=== PATIENT | male | born 1955 | race Caucasian/White ===

== ENCOUNTER 2025-01-15 09:00 | Outpatient (RCR) | payer MEDICARE, OTHER, SELFPAY ==
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
--- NOTE | 2024-12-31 16:15 | PT-OP ANOTE ---
pt cancelled appt, no reason given.
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
== END 2025-01-18 08:53 | disposition home or self-care (01) ==
LOC: PHYS 09:00
PROVIDERS: Family Provider Family Medicine; PCP Family Medicine; Referring Provider Family Medicine; Visit Provider Family Medicine
DX: M25.512 Pain in left shoulder (principal)
CPT/HCPCS: 97012; 97110; 97140; 97162; 97535

== ENCOUNTER 2025-08-21 09:45 | Outpatient (RCR) | payer MEDICARE, OTHER, SELFPAY ==
--- NOTE | 2025-07-01 16:52 | PT.OPPOC ---
Physical, Occupational & Speech Therapy At [facility] Current Diagnoses Other chronic pain (07/01/25) Pain in right hip (07/01/25) Visit Care Team Role Provider Type Brittney Palacios DO Attending Provider Physician Family Provider Primary Care Provider Referring Provider Specialty: Medical Address: [address] [place] [address], [address], [place], [address] Email: [email or web address] Plan Of Care PT OP: Lower Back/Lower Extremity Start: 07/01/25 13:02 Freq: Status: Active Protocol: Document 07/01/25 13:02 [facility] (Rec: 07/01/25 13:51 [facility] [id number]) Out-Patient Physical Therapy Visit Information Visit Information Visit Start Time 13:03 Visit Stop Time 13:48 Visit Number 1 Number of CREATIVE WRITING TEACHER Visits 0 Progress Note Due 07/31/25 Current Condition History of Current Condition Onset Date 1.5-2 years Current Complaints R lat hip and post History of Current Pt reports R lat hip pain that started. 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 did a lot of L shoulder PT and does a few exercises a week for that and can lay on L side now but laying on R side hurts him. Having R knee up towards chest improves it. It is a dull ache. Dr tried cortizone shot that helped maybe some. Walking doesn't seem to hurt it unless he walks a lot, but standing hurts back and hip like in kitchen. some days are 15- 18k step days and those inc pain. splitting and stacking wood seems to make it worse. a little discomfort with squatting. tried icing and that does help some. dehydration makes it worse. R sided inguinal hernia 2 years ago. Stopped vaping after that and decreased drinking alcohol after that. Have had back pain, but with some of his shoulder exercises, and stretching has helped. Treatment Goals Patient/Caregiver be able to lay on R hip, be able to long days on feet, Goals be able squat down w/o tightness. Patient Questionnaires Lower Extremity Functional Scale LEFS Score 72/80 Balance Tests Single Limb Standing Single Limb- Right >30 sec inc deviation-slight ache Single Limb- Left >30 sec OP Gait Assessment Comments Gait Comments dec stance time RLE and dec hip ext R>L Posture Evaluation Gaudencio Postural Classification System Lumbar Protective 1 Mechanism Left AP Lumbar Protective 1 Mechanism Right AP Lumbar Protective 2 Mechanism Left PA Lumbar Protective 2 Mechanism Right PA Comments Posture Comments R pelvic shear, L SB, R foot supinates, R trunk rotation, equal greater trochanter height, R iliac crest higher Lumbar Spine Range of Motion Lumbar Spine Active Percentage Flexion 50 Extension 75 Rotation Left 60 Rotation Right 60 Lateral Flexion Left 80 Lateral Flexion 50 Right Comments about 2 in above patella w/flex w/pelvis blocked, 1 in above malleoli w/o; pop w/L SB w/relief Hip Goniometric Range of Motion Hip Measured in Degrees Left Active Flexion w/Knee 108 Flexed Straight Leg Raise 79 Internal Rotation 23 External Rotation 24 Right Active Flexion w/Knee 101 Flexed Straight Leg Raise 79 Abduction 23 Internal Rotation 18 External Rotation 21 Special Tests Lumbar Spine Special Tests Kalie Test Results neg for pain but more ROM L>R Adama Test Results L quad and mild hip flexor tightness, R hip flexor and RF tightness SLR Test Results groin pain R Comments L ant thigh cramping Slump Test Results neg B Hip Strength Hip Manual Muscle Testing Right Flexion (L2) 4- Good- Extension (S1) 4- Good- Abduction 3+ Fair+ Adduction 4- Good- External Rotation 4+ Good+ Internal Rotation 4- Good- Left Flexion (L2) 4- Good- Extension (S1) 4 Good Abduction 5 Normal Adduction 5 Normal External Rotation 5 Normal Internal Rotation 5 Normal Knee Strength Knee Manual Muscle Testing Right Flexion (S2) 5 Normal Extension (L3) 5 Normal Left Flexion (S2) 5 Normal Extension (L3) 5 Normal Therapeutic Exercises Supine Exercises bridge Supine Exercise Name stopped d/t HS cramping w/2 reps Side bilateral isometric Supine Exercise Name DL flex w/DF Side bilateral Reps/Minutes 20 sec Standing Exercises sidestep Side bilateral Equipment Used L2 at ankles Reps/Minutes 2x10ft Comments cues posture Self-Care/Home Management Treatment Education Other Education 10min:e du to pt re: R hip weakness and dec flexibility likely related to pain. Edu how inguinal hernia repair may also be related based on timeline and how tightness ant could throw off the hip. edu on postural changes and pelvis off likely affecting pain Physical Therapy Assessment Rehab Potential Rehabilitation Good Potential Evaluation Complexity Number of Personal 3 or More Factors/ Comorbidities Number of Body 4 or More Systems Impaired Clinical Evolving Presentation at Evaluation Impairments Impairments Activity Tolerance,Balance,Functional Activities, Functional Mobility,Gait,Pain,Posture,ROM,Soft Tissue Mobility,Strength,Transfers Goals ROM Senior Living Goal (LTG) Pt will report being able to reach toenails on R foot w /o difficulty for clipping. LTG Duration 09/25 activities Short Term Goal (STG pt will be able to squat w/o tightness in R hip ) STG Duration 08/21 Senior Living Goal (LTG) Pt will be able to lay on R side w/o increased pain LTG Duration 09/21 strength Short Term Goal (STG Pt will demonstrate independence w/HEP by being able to ) perform with no more than min cues. STG Duration 08/01 Pockets And Pieces Necktie Operator Goal (LTG) Pt will score at least 4+/5 on all B hip MMT and at least 3/5 LPM to show improved strength to allow pt to do house activities w/o inc pain LTG Duration 09/29/25 Assessment Summary Assessment Pt presents w/chronic R lat/post hip pain with hx of R inguinal hernia repair around the same time pain started. Pt also has major postural changes and alignment dysfunctions contributing to pain along w/dec ROM and strength of R hip and core. He would benefit from skilled PT to address these deficits and improve his function in order to do daily activities w/o hip pain. Physical Therapy Plan Frequency and Duration Frequency of 1x/Week Treatment Duration of 12 treatment (weeks) Plan of Care Start 07/01/25 Date Plan of Care End 09/29/25 Date Therapeutic Interventions Therapeutic Balance Training,Gait Training,Home Exercise Program, Interventions Joint Mobilizations,Manual Therapy,Neuromuscular Re- education,Self-Care/Home Management,Soft Tissue Mobilization,Taping,Therapeutic Activities,Therapeutic Exercises Modalities Cold Pack/Ice Massage,Electric Stimulation,Hot Packs, Infrared Therapy,Traction- Mechanical,Ultrasound Next Visit Focus/Plan Next Note Type Treatment Note Next Visit Plan review exercises, hip stretches, cat/cow, core exercises; manual to pelvis, R hip and mm around R hip Plan of Care Dates Plan of Care Start Date 07/01/25 Plan of Care End Date 09/29/25 Electronically Signed by: Aditi Oconnor, PT 07/01/25 2468 If you are in agreement with this Plan of Care, please return a signed and dated copy. I have reviewed this Plan of Care and certify that the skilled therapy services above are required to meet the patient?s needs. Physician Signature Date Printed Name and Credentials Clinical Instructor Signature Printed Name and Credentials
--- NOTE | 2025-07-08 10:34 | PT.OTN ---
Current Diagnoses Other chronic pain (07/08/25) Pain in right hip (07/08/25) Physical Therapy Treatment Note PT OP: Lower Back/Lower Extremity Start: 07/01/25 13:02 Freq: Status: Active Protocol: Document 07/08/25 09:47 SP (Rec: 07/08/25 10:38 SP [id number]) Out-Patient Physical Therapy Visit Information Visit Information Visit Type Treatment Note Visit Start Time 09:48 Visit Stop Time 10:34 Visit Number 2 Number of MOLD PRESSER Visits 1 Progress Note Due 07/31/25 OP-PT Subjective Patient Comments Patient Comments Pt Compliant with resisted stepping, good hip mm tiring . Dr Palacios gave him a shot, bettet than was but still can 't sleep in R hip. He is doing pretty good, with past L shld HEP ROM vs strengthening cued importance but lifting buckets over head and only creaking and occasional pain not limiting him. 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 Therapeutic Exercises Supine Exercises Stretching Supine Exercise Name 1. HS static &dynamic ankle pumps 2. pirif stretch /c strap 3. Mod Adama Side bilateral Resistance R>L tightness Equipment Used 4. Quad Reps/Minutes 30-60 sec 1-2 Comments slow gentle stret Standing Exercises sidestep Standing Exercise verbal review Name Manual Therapy Treatment Consent Patient gave verbal Yes consent for manual treatment Soft Tissue Mobilization Hip\ Body Location L SL: R pirifrmis, glut med & max, TFL, ITB prox Comments good response Joint Mobilizations hip Joint R: lateral, posterolateral, anterior medial, PNF anterior elevation/postdep Comments very weak core and posterior depression good response to mobs with strap, performance instruction self with phone pics Self-Care/Home Management Treatment Education Patient Education Body Mechanics,Home Exercise Program,Joint Protection, Pain Management,Posture,Safety Other Education much ed during manual and ed self instruction for carryover home, importance of flexibility and strength, incorporated flexibiltiy today with good resposne and how can incorporate home. Future body mechanics. Physical Therapy Assessment Goals ROM Care Home Goal (LTG) Pt will report being able to reach toenails on R foot w /o difficulty for clipping. LTG Duration 11/5 activities Short Term Goal (STG pt will be able to squat w/o tightness in R hip ) STG Duration 08/21 Care Home Goal (LTG) Pt will be able to lay on R side w/o increased pain LTG Duration 09/21 strength Short Term Goal (STG Pt will demonstrate independence w/HEP by being able to ) perform with no more than min cues. STG Duration 08/01 Medical Oncology Physician Goal (LTG) Pt will score at least 4+/5 on all B hip MMT and at least 3/5 LPM to show improved strength to allow pt to do house activities w/o inc pain LTG Duration 09/29/25 Assessment Summary Assessment Pt good feedback response to manual and education on self R hip mobs for relief home carryover. Initiated stretching program with good feedback able move hip better, very tight R>L HS hip flexor, quad, cues for TA /PPT neutral to not over recruit LS with good corrections and understanding when utilize. Physical Therapy Plan Frequency and Duration Frequency of 1x/Week Treatment Duration of 12 treatment (weeks) Plan of Care Start 07/01/25 Date Plan of Care End 09/29/25 Date Therapeutic Interventions Therapeutic Balance Training,Gait Training,Home Exercise Program, Interventions Joint Mobilizations,Manual Therapy,Neuromuscular Re- education,Self-Care/Home Management,Soft Tissue Mobilization,Taping,Therapeutic Activities,Therapeutic Exercises Modalities Cold Pack/Ice Massage,Electric Stimulation,Hot Packs, Infrared Therapy,Traction- Mechanical,Ultrasound Next Visit Focus/Plan Next Note Type Treatment Note Next Visit Plan review exercises, hip stretches, cat/cow, core exercises; manual to pelvis, R hip and mm around R hip, future body mechanics
--- NOTE | 2025-07-29 14:30 | PT.OTN ---
Current Diagnoses Other chronic pain (07/29/25) Pain in right hip (07/29/25) Physical Therapy Treatment Note PT OP: Lower Back/Lower Extremity Start: 07/01/25 13:02 Freq: Status: Active Protocol: Document 07/29/25 13:50 SP (Rec: 07/29/25 15:24 SP [id number]) Out-Patient Physical Therapy Visit Information Visit Information Visit Type Treatment Note Visit Note ALICIA Ayers assisted with manual hip mobs and hat body inspector instruction while under direct supervision and instruction of FLAKITA Toth. Visit Start Time 13:50 Visit Stop Time 14:30 Visit Number 3 Number of RETAIL SALES MERCHANDISER DEVELOPMENT Visits 2 Progress Note Due 07/31/25 OP-PT Subjective Patient Comments Patient Comments Pt was able to sleep on L hip without issues. Has been traveling and not having as much issues and honestly hasn;t been as diligent with HEP. He did some good walking 1.5 miles and little soreness R hip and low back, only had to ice 3x in past week so seeing improvement. He is finding great relief with self hip mobes. Therapeutic Exercises Standing Exercises sidestep Standing Exercise performed review- Fwd, Bwd, lateral Name Side bilateral Resistance Tb #3 [place] Reps/Minutes 15 ftr 2 laps each direction Comments cued safety eccentric return with stronger #3 band Other Exercises Self STMs Other Exercise Name R glut & hip ERs Equipment Used racquetball (hooklying) Reps/Minutes 1-2 min Comments instruction ed: sustain pressure vs MWM hip IR/ER Therapeutic Activity Therapeutic Activity Push cart (wheelbarrow assimulation) Name 50 lbs Comments cued more upright elongated spinal alignment, TA, and education mechanics pushing better than pulling due to able to brace abdominals for spinal support. pull weeds Name 1/2 kneel pulling weeds Comments cued more elongated spinal alignment, TA and wt shift fwd/bwd between front/back legs for use of larger musculature to pull weeds vs just UE, education many times is when the back gets injured. squat mechanics Name squat lifting: firewood, compost (home 10-50 lbs) Comments cued for spinal alignment, movement work space for feet repositioning, wt shift between BLEs use of larger quad, glut muscles and mindful of TA engagment Manual Therapy Treatment Consent Patient gave verbal Yes consent for manual treatment Soft Tissue Mobilization Hip\ Body Location R pirifrmis, glut med & max, TFL, ITB prox Comments good response Joint Mobilizations hip Joint R: lateral, posterolateral, anterior medial Comments good response to mobs with strap Physical Therapy Assessment Goals ROM Broker Assistant Goal (LTG) Pt will report being able to reach toenails on R foot w /o difficulty for clipping. LTG Duration 09/25 activities Short Term Goal (STG pt will be able to squat w/o tightness in R hip ) STG Duration 08/21 Broker Assistant Goal (LTG) Pt will be able to lay on R side w/o increased pain LTG Duration 09/21 strength Short Term Goal (STG Pt will demonstrate independence w/HEP by being able to ) perform with no more than min cues. STG Duration 08/01 Jail Goal (LTG) Pt will score at least 4+/5 on all B hip MMT and at least 3/5 LPM to show improved strength to allow pt to do house activities w/o inc pain LTG Duration 09/29/25 Assessment Summary Assessment Pt had good feedback response to manual, provided RETAIL SALES MERCHANDISER DEVELOPMENT and [employer] feedback of R hip mob pressure and direction distraction to give him relief and improved hip ER range of motion. Continued cueing education to patient with improved self corrections for spinal alignment, postural corections and moving BLEs pivoting when picker / packer/ put down items with abdominal engagment support to decrease low back compensations when moving compost or splitting wood. Physical Therapy Plan Frequency and Duration Frequency of 1x/Week Treatment Duration of 12 treatment (weeks) Plan of Care Start 07/01/25 Date Plan of Care End 09/29/25 Date Therapeutic Interventions Therapeutic Balance Training,Gait Training,Home Exercise Program, Interventions Joint Mobilizations,Manual Therapy,Neuromuscular Re- education,Self-Care/Home Management,Soft Tissue Mobilization,Taping,Therapeutic Activities,Therapeutic Exercises Modalities Cold Pack/Ice Massage,Electric Stimulation,Hot Packs, Infrared Therapy,Traction- Mechanical,Ultrasound Next Visit Focus/Plan Next Note Type Treatment Note Next Visit Plan Next tx: assess squat mechanics and add as HEP. POC: REview HEP including hip stretches, cat/cow, core exercises; provide manual to pelvis, R hip and mm around R hip.
--- NOTE | 2025-08-05 11:34 | PT.OPPN ---
Current Diagnoses Other chronic pain (08/05/25) Pain in right hip (08/05/25) Physical Therapy Progress Note PT OP: Lower Back/Lower Extremity Start: 07/01/25 13:02 Freq: Status: Active Protocol: Document 08/05/25 10:43 [facility] (Rec: 08/05/25 11:34 [facility] [id number]) Out-Patient Physical Therapy Visit Information Visit Information Visit Type Progress Note Visit Start Time 10:50 Visit Stop Time 11:30 Visit Number 4 Number of EDUCATION TRAINER Visits 0 Progress Note Due 09/04/25 OP-PT Subjective Patient Comments Patient Comments hip slowly getting better. compliance w/HEP Posture Evaluation Gaudencio Postural Classification System Lumbar Protective 2 Mechanism Left AP Lumbar Protective 1 Mechanism Right AP Lumbar Protective 2 Mechanism Left PA Lumbar Protective 2 Mechanism Right PA Hip Strength Hip Manual Muscle Testing Right Flexion (L2) 4+ Good+ Extension (S1) 4- Good- Abduction 4 Good Adduction 4+ Good+ External Rotation 4+ Good+ Internal Rotation 4+ Good+ Left Flexion (L2) 4+ Good+ Extension (S1) 4+ Good+ Abduction 5 Normal Adduction 5 Normal External Rotation 5 Normal Internal Rotation 5 Normal Therapeutic Exercises Standing Exercises squat Standing Exercise seat taps Name Side bilateral Equipment Used L 2 at knees Reps/Minutes 15 Comments cues hip hinge and glutes, cues knee position hip ext Standing Exercise hip hinge position to forearms on counter Name Side bilateral Equipment Used L2 ankles Reps/Minutes 10 ea Comments cues core sidestep Standing Exercise mini squat position Name Side bilateral Resistance lvl 2 at ankles, L3 at knees Reps/Minutes 15ft ea Comments cues posture Manual Therapy Treatment Consent Patient gave verbal Yes consent for manual treatment Soft Tissue Mobilization HS Body Location B percussion c/r HS stretch Mobilization Type Instrument Assisted Intensity/Depth Moderate Body Position Supine Joint Mobilizations innominate Comments R prone caudal w/LTR, R ER c/r prone, R flex c/r supine hip Comments R hip on axis c/r prone, R free the ball IR and ER c/r, B inf glide c/r Physical Therapy Assessment Goals ROM Petrographer Goal (LTG) Pt will report being able to reach toenails on R foot w /o difficulty for clipping. LTG Duration achieved 08/05 activities Short Term Goal (STG pt will be able to squat w/o tightness in R hip ) 08/05-better but still present STG Duration 08/21 Petrographer Goal (LTG) Pt will be able to lay on R side w/o increased pain 08/05-can do now about 2 hours vs only 20 min LTG Duration 09/21 strength Short Term Goal (STG Pt will demonstrate independence w/HEP by being able to ) perform with no more than min cues. STG Duration 08/01 Usp Goal (LTG) Pt will score at least 4+/5 on all B hip MMT and at least 3/5 LPM to show improved strength to allow pt to do house activities w/o inc pain 08/05-improving LTG Duration 09/29/25 Assessment Summary Assessment Pt making good progress w/PT with improved ROM of hip after manual and less discomfort w/squat. Pt trained w/ squat mechanics and felt challenged by exercises. COnt PT to work on ROM, and strength to dec hip discomfort Physical Therapy Plan Frequency and Duration Frequency of 1x/Week Treatment Duration of 12 treatment (weeks) Plan of Care Start 07/01/25 Date Plan of Care End 09/29/25 Date Next Visit Focus/Plan Next Note Type Treatment Note Next Visit Plan check in to see if pt ready for DC vs schedule more; review exercises, manual to hip Teach self inf glide and DKTC isometric flex press
--- NOTE | 2025-08-21 10:32 | PT.OPDS ---
Current Diagnoses Other chronic pain (08/21/25) Pain in right hip (08/21/25) Visit Care Team Role Provider Type Brittney Palacios DO Attending Provider Physician Family Provider Primary Care Provider Referring Provider Specialty: Medical Address: [address] [place] [address], [address], [place], [address] Email: [email or web address] Visit Number Visit Number 5 Discharge Summary PT OP: Lower Back/Lower Extremity Start: 07/01/25 13:02 Freq: Status: Active Protocol: Document 08/21/25 09:49 [facility] (Rec: 08/21/25 10:32 [facility] [id number]) Out-Patient Physical Therapy Visit Information Visit Information Visit Type Discharge Summary Visit Start Time 09:50 Visit Stop Time 10:30 Visit Number 5 Number of IMPROVEMENT LEADER Visits 0 Progress Note Due 09/04/25 OP-PT Subjective Patient Comments Patient Comments slept on hip hip for 4 hours and felt ok. seems to keep getting better. tightness with squatting getting better Posture Evaluation Gaudencio Postural Classification System Lumbar Protective 2 Mechanism Left AP Lumbar Protective 1 Mechanism Right AP Lumbar Protective 3 Mechanism Left PA Lumbar Protective 3 Mechanism Right PA Hip Strength Hip Manual Muscle Testing Right Flexion (L2) 5 Normal Extension (S1) 5 Normal Abduction 5 Normal Adduction 5 Normal External Rotation 5 Normal Internal Rotation 5 Normal Left Flexion (L2) 5 Normal Extension (S1) 5 Normal Abduction 5 Normal Adduction 5 Normal External Rotation 5 Normal Internal Rotation 5 Normal Therapeutic Exercises Supine Exercises bug Side bilateral Reps/Minutes 2x10 Comments cues back flat &breathing isometric Supine Exercise Name DL flex w/DF Side bilateral Reps/Minutes 30 sec Standing Exercises squat Standing Exercise seat taps Name Side bilateral Equipment Used L 3 at knees Reps/Minutes 15 Comments cues hip hinge and glutes, cues knee position hip ext Standing Exercise hip hinge position to forearms on counter Name Side bilateral Equipment Used L2 ankles Reps/Minutes 15 ea Comments cues core sidestep Standing Exercise mini squat position Name Side bilateral Resistance lvl 2 at ankles, L3 at knees Reps/Minutes 15ft ea Comments cues posture Manual Therapy Treatment Consent Patient gave verbal Yes consent for manual treatment Soft Tissue Mobilization Hip\ Body Location R pirifrmis, glut med & max, TFL, ITB prox Comments good response Joint Mobilizations innominate Comments R hip abd and IR s/l and supine c/r hip Comments R hip abd c/r and IR free the ball c/r Physical Therapy Assessment Goals ROM Custodial Goal (LTG) Pt will report being able to reach toenails on R foot w /o difficulty for clipping. LTG Duration achieved 08/05 activities Short Term Goal (STG pt will be able to squat w/o tightness in R hip ) 08/05-better but still present STG Duration min tightness but improving Balancing Machine Set Up Worker Goal (LTG) Pt will be able to lay on R side w/o increased pain 08/05-can do now about 2 hours vs only 20 min LTG Duration achieved did 4 hours last night strength Short Term Goal (STG Pt will demonstrate independence w/HEP by being able to ) perform with no more than min cues. STG Duration 08/01 Custodial Goal (LTG) Pt will score at least 4+/5 on all B hip MMT and at least 3/5 LPM to show improved strength to allow pt to do house activities w/o inc pain 08/05-improving LTG Duration MMT achieved, AP mild core weakness w/LPM Assessment Summary Assessment Pt has met most goals and notes much improved symptoms and is indep w/HEP at this time. Strength progressing well with some weakness in core still and exercises added for focus on this. Physical Therapy Plan Frequency and Duration Frequency of 1x/Week Treatment Duration of 12 treatment (weeks) Plan of Care Start 07/01/25 Date Plan of Care End 09/29/25 Date Discharge Physical Therapy Discharge Reasons Goals Met
== END 2025-08-22 09:29 | disposition home or self-care (01) ==
LOC: PHYS 09:45
PROVIDERS: Family Provider Family Medicine; PCP Family Medicine; Referring Provider Family Medicine; Visit Provider Family Medicine
DX: M25.551 Pain in right hip (principal); G89.29 Other chronic pain
CPT/HCPCS: 97110; 97140; 97162; 97530; 97535

== ENCOUNTER → 2025-09-09 11:02 | Outpatient (CLI) | payer MEDICARE, OTHER, SELFPAY ==
[2025-09-09 12:15] LABS: Alanine Aminotransferase 22 IU/L (<50); Albumin 4.5 g/dL (3.5-5.0); Albumin Globulin Ratio 1.5 (1.0-2.8); Alkaline Phosphatase 50 U/L (38-126); Blood Urea Nitrogen 15 mg/dL (9-20); Calcium 9.8 mg/dL (8.4-10.2); Carbon Dioxide 27 mmol/L (22-32); Chloride 101 mmol/L (98-107); Estimated Glomerular Filt Rate > 60 mL/min (>60); Globulin 3.0 g/dL (1.7-4.1); Glucose 94 mg/dL (70-99); HEMOLYSIS < 15 (0-50); Potassium 5.1 mmol/L (3.4-5.1); Sodium 135 mmol/L (137-145); Total Protein 7.5 g/dL (6.3-8.2)
== END ==
PROVIDERS: Family Provider Family Medicine; PCP Family Medicine; Referring Provider Family Medicine; Visit Provider Family Medicine
DX: Z12.5 Encounter for screening for malignant neoplasm of prostate (principal); Z51.81 Encounter for therapeutic drug level monitoring
CPT/HCPCS: 36415; 80053; G0103